=== PATIENT | female | born 1960 | race Caucasian/White ===

== ENCOUNTER 2019-07-20 08:24 | Emergency (ER) | payer BC, SELFPAY ==
--- NOTE | ~2019-07-20 | XR_ITS ---
XR shoulder RT min 2V DATE: 07/20/2019 09:03 INDICATION: Right shoulder pain TECHNIQUE: 4 views COMPARISON: None FINDINGS: There is a comminuted fracture the proximal humerus including transverse fracture through t he surgical neck and fracture of the greater tuberosity. There is minimal displacement or angulation. Alignment is preserved at the acromioclavicular and glenohumeral joints. Diffuse osteopenia. IMPRESSION: Comminuted fracture proximal humerus including fracture of the surgical neck and greater tuberosity Reviewed, dictated and finalized at location A. IMPRESSION: Comminuted fracture proximal humerus including fracture of the surg ical neck and greater tuberosity
--- NOTE | ~2019-07-20 | XR_ITS ---
XR elbow RT min 3V DATE: 07/20/2019 09:03 INDICATION: Right elbow injury, pain. Patient fell out of bed. TECHNIQUE: 3 views COMPARISON: None FINDINGS: Dorsal olecranon process spur. No fracture or dislocation of the elbow or elbow joint effusion. IMPRESSION: No fracture or dislocation or joint effusion of elbow Reviewed, dictated and finalized at location A.
[2019-07-20 08:31] VITALS: BP 150/69; PULSE 71; RESP 20; TEMP 36.3; O2SAT 97
--- NOTE | 2019-07-20 08:48 | ED.UPPEXIN ---
HPI - Extremity Injury (Upper) General Chief Complaint: Extremity Injury, Upper Stated Complaint: Fall (arm pain) Time Seen by Provider: 07/20/19 08:41 Source: patient Mode of arrival: ambulatory Limitations: no limitations History of Present Illness HPI narrative: This patient is a 58 year old female who is right hand dominant that presents to ER for evaluation of right shoulder injury. Patient states she fell out of bed after having a bad dream. She fell onto her right shoulder. She has severe right shoulder pain that is worse with leaning forward and it is worse with movement. She also reports pain just above her right elbow. She denies hitting her head, neck pain, numbness or tingling. She has not taken anything for pain. MD complaint: injury to: right and shoulder Onset (ago): hour(s) (1) Related Data Home Medications Medication Instructions Recorded Confirmed blood sugar diagnostic #10 each 04/08/19 04/08/19 lancets #50 each 04/08/19 04/08/19 loratadine 10 mg tablet 10 mg PO DAILY 04/08/19 04/08/19 subcutaneous insulin pump #1 each 04/08/19 04/08/19 lactobacillus combination no.4 07/20/19 [Probiotic] Allergies Allergy/AdvReac Type Severity Reaction Status Date / Time sulfite Allergy Anaphylaxis Verified 07/20/19 08:40 Review of Systems Review of Systems: All systems reviewed & are unremarkable except as noted in HPI and below Constitutional: Constitutional: Denies chills and Denies fever(s) Neurologic: Denies dizziness, Denies headache(s), Denies focal weakness and Denies weakness PMFSH Past Medical History Medical History (Updated 07/20/19 @ 10:02 by Bernadette Siddiqui MD) Essential hypertension Pure hypercholesterolemia, unspecified Type 2 diabetes mellitus with hyperglycemia, with long-term current use of insulin Surgical History Surgical History (Updated 07/20/19 @ 08:51 by Bernadette Siddiqui MD) Hx of tonsillectomy Social History Social History Smoking status: Former smoker Second hand tobacco smoke exposure: No Smoking end date: 03/01/08 Alcohol intake: current Gender identity (if verbalized by the patient): Female Exam Const: General: alert Orientation/consciousness: patient oriented x3 HENMT: Head: normocephalic and atraumatic Resp: Effort & Inspection: normal respiratory effort Neuro: General: patient oriented x3 and moves all extremities Extrem: General: capillary refill normal Right upper extremity: normal capillary refill and shoulder/upper arm tenderness of the proximal humerus and abnormal ROM held in an abnormal fashion in ADduction Course Reevaluation(s) Reevaluation #1: I Discussed with patient follow up . She states she will attempt to follow up with shoulder specialist. Date: 07/20/19 Time: 10:00 Consultations Consultation #1: Dr. Mays reviewed xray and he states patient can follow up with him as outpatient or the shoulder specialist at [place] that she has seen in the past. Date: 07/20/19 Time: 09:30 Vital Signs Vital signs: Vital Signs Temperature 97.4 F L 07/20/19 08:31 Pulse Rate 71 07/20/19 08:31 Respiratory Rate 20 07/20/19 08:31 Blood Pressure 150/69 H 07/20/19 08:31 Pulse Oximetry 97 07/20/19 08:31 Temperature 97.3 F L 07/20/19 10:37 Pulse Rate 65 07/20/19 10:37 Respiratory Rate 19 07/20/19 10:37 Blood Pressure 142/83 H 07/20/19 10:37 Pulse Oximetry 96 07/20/19 10:37 MDM - Extremity Injury (Upper) Imaging Data Radiologist's impression: ITS Impressions Shoulder X-Ray 07/20/19 09:04 IMPRESSION: Comminuted fracture proximal humerus including fracture of the surgical neck and greater tuberosity Elbow X-Ray 07/20/19 09:05 IMPRESSION: No fracture or dislocation or joint effusion of elbow Discharge Plan Discharge Clinical Impression: Closed traumatic minimally displaced fracture of proximal end of h
[2019-07-20] MEDS: ONDANSETRON HCL ODT 4 MG TABLET PO (08:51)
--- NOTE | 2019-07-20 09:11 | PC.NURSE ---
Patient back from xray at this time.
--- NOTE | 2019-07-20 10:23 | PC.NURSE ---
Disc with images requested from radiology at this time.
[2019-07-20 10:37] VITALS: BP 142/83; PULSE 65; RESP 19; TEMP 36.3; O2SAT 96
== END 2019-07-20 10:40 | disposition home or self-care (01) ==
PROVIDERS: Emergency Provider General Practice; PCP Family Medicine
DX: S42.211A Unspecified displaced fracture of surgical neck of right humerus, initial encounter for closed fracture (principal); S42.251A Displaced fracture of greater tuberosity of right humerus, initial encounter for closed fracture; I10 Essential (primary) hypertension; E78.00 Pure hypercholesterolemia, unspecified; Z87.891 Personal history of nicotine dependence; W06.XXXA Fall from bed, initial encounter
CPT/HCPCS: 73030; 73080; 99284; A9270

== ENCOUNTER 2021-09-15 01:47 | Day surgery (SDC) | payer BC, SELFPAY ==
[2021-09-03 13:02] VITALS: BMI 41.2
--- NOTE | 2021-09-12 13:49 | PM.HPGS ---
History of Present Illness History of Present Illness Consent: Risks, benefits, and alternatives have been discussed and questions answered. Patient agrees to proceed with procedure. Chief complaint: neoplasm screening Narrative: Zakia Ruth is a 60 year old female Referred for colon cancer screening. Her father had colon cancer. She had a negative colonoscopy 2011. Review of Systems Review of Systems: All systems reviewed & are unremarkable except as noted in HPI and below PMFSH Past Medical History Medical History Essential hypertension Morbid obesity Pure hypercholesterolemia, unspecified Retinopathy Type 2 diabetes mellitus with hyperglycemia, with long-term current use of insulin Surgical History Surgical History H/O shoulder surgery Hx of tonsillectomy Family History Family History Mother Family history of migraine headaches Family history of cataracts Family history of malignant neoplasm of breast in first degree relative Father Hypertension Family history of heart disease in male family member before age 55 Family history of hearing loss Carcinoma of colon COVID-19 Grandparent Cerebrovascular accident Family history of heart disease in male family member before age 55 Diabetes mellitus Other Family history of malignant neoplasm Social History Social History Smoking packs per day: 0.25 Smoking cigarettes per day: 5.0 Years smoked: 10 Smoking pack-years: 2.50 Smoking status: Former smoker Tobacco type: cigarettes Second hand tobacco smoke exposure: No Smoking end date: 03/01/08 Alcohol intake: current Substance use: never Substance use type: does not use Living arrangements: with family Additional living arrangements comments: Lives with partner Melinda. 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 [employer] Gender identity (if verbalized by the patient): Female Sexual Orientation (if Verbalized by the Patient): Lesbian, Eason, or Homosexual Spiritual care concerns: No Meds Home Medications and Allergies Home Medications Medication Instructions Recorded Confirmed Type loratadine 10 mg tablet (Claritin) 10 mg PO DAILY 04/08/19 09/15/21 History subcutaneous insulin pump (MiniMed #1 ea 11/09/19 09/15/21 History 630G Insulin Pump) blood sugar diagnostic (Contour #10 ea 02/13/20 09/15/21 History Next Test Strips) lancets (Microlet Lancet) #50 ea 02/13/20 09/15/21 History Humalog U-100 Insulin 100 unit/mL 100 unit continuous subcutaneous 04/28/21 09/15/21 Rx subcutaneous solution (insulin infusion DAILY 90 days #90 mL lispro) metformin 1,000 mg tablet 1,000 mg PO BID 90 days #180 tabs 04/28/21 09/15/21 Rx losartan 25 mg tablet See Rx Instructions .Route 05/26/21 09/15/21 Rx .COMPLEX #90 tabs simvastatin 10 mg tablet 10 mg PO QPM #90 tabs 05/26/21 09/15/21 Rx calcium carbonate 600 mg-vitamin 2 cap PO DAILY 08/04/21 09/15/21 History D3 25 mcg (1,000 unit) capsule escitalopram oxalate 10 mg tablet 10 mg PO DAILY #90 tabs 09/04/21 09/15/21 Rx (Lexapro) Allergies Allergy/AdvReac Type Severity Reaction Status Date / Time sulfite Allergy Anaphylaxis Verified 09/15/21 09:04 Exam Resp: Auscultation: clear to auscultation bilaterally Cardio: Rate: regular rate Rhythm: regular rhythm GI: GI Palp: Yes Soft to palpation and No Tenderness to palpation present (GI) Assessment and Plan Assessment and plan (1) Screening for malignant neoplasm of colon: Code(s): Z12.11 - Encounter for screening for malignant neoplasm of colon Status: Acute Assessment and Plan: Colonoscopy with possible biopsy or polypectomy or cautery or injection of substances.
[2021-09-15 09:05] VITALS: BP 153/69; PULSE 81; RESP 18; TEMP 36; O2SAT 96; BMI 42.5
[2021-09-15] MEDS: LACTATED RINGERS 1,000 ML 150 ML IV CONT (09:08)
[2021-09-15 09:21] LABS: Glucose Point of Care 109 mg/dl (65-105)
--- NOTE | 2021-09-15 09:44 | WPDANESEPPF ---
Anes - Initial Pre Proc Eval Procedure: Operation Date: 09/15/21 10:15 Proposed Procedures p Screening Colonoscopy - Brayden Bloom MD Date/Time: 09/15/21 09:44 Surgeon: Brayden Bloom MD Pre Op Diagnosis: neoplasm screening Patient Data Age: 60 Gender: F Height: 1.73 m Weight: 127 kg Last Vital Signs Temp 96.8 F L 09/15/21 09:05 Pulse 81 09/15/21 09:05 Resp 18 09/15/21 09:05 BP 153/69 H 09/15/21 09:05 Pulse Ox 96 09/15/21 09:05 O2 Del Method Room Air 09/15/21 09:05 Allergies Allergy/AdvReac Type Severity Reaction Status Date / Time sulfite Allergy Anaphylaxis Verified 09/15/21 09:04 Home Medications Medication Instructions Recorded Confirmed Type loratadine 10 mg tablet (Claritin) 10 mg PO DAILY 04/08/19 09/15/21 History subcutaneous insulin pump (MiniMed #1 ea 11/09/19 09/15/21 History 630G Insulin Pump) blood sugar diagnostic (Contour #10 ea 02/13/20 09/15/21 History Next Test Strips) lancets (Microlet Lancet) #50 ea 02/13/20 09/15/21 History Humalog U-100 Insulin 100 unit/mL 100 unit continuous subcutaneous 04/28/21 09/15/21 Rx subcutaneous solution (insulin infusion DAILY 90 days #90 mL lispro) metformin 1,000 mg tablet 1,000 mg PO BID 90 days #180 tabs 04/28/21 09/15/21 Rx losartan 25 mg tablet See Rx Instructions .Route 05/26/21 09/15/21 Rx .COMPLEX #90 tabs simvastatin 10 mg tablet 10 mg PO QPM #90 tabs 05/26/21 09/15/21 Rx calcium carbonate 600 mg-vitamin 2 cap PO DAILY 08/04/21 09/15/21 History D3 25 mcg (1,000 unit) capsule escitalopram oxalate 10 mg tablet 10 mg PO DAILY #90 tabs 09/04/21 09/15/21 Rx (Lexapro) Laboratory Tests 09/15/21 09:19 POC Capillary Glucose 109 mg/dl H mg/dl (65-105) Patient hx anesthesia problems: none Family hx anesthesia problems: none Results Review: All pre-operative results and documents have been reviewed as part of the pre-operative evaluation. [facility] Past Medical History Medical History Essential hypertension Morbid obesity Pure hypercholesterolemia, unspecified Retinopathy Type 2 diabetes mellitus with hyperglycemia, with long-term current use of insulin Surgical History Surgical History H/O shoulder surgery Hx of tonsillectomy Family History Family History Mother Family history of migraine headaches Family history of cataracts Family history of malignant neoplasm of breast in first degree relative Father Hypertension Family history of heart disease in male family member before age 55 Family history of hearing loss Carcinoma of colon COVID-19 Grandparent Cerebrovascular accident Family history of heart disease in male family member before age 55 Diabetes mellitus Other Family history of malignant neoplasm Social History Social History Smoking packs per day: 0.25 Smoking cigarettes per day: 5.0 Years smoked: 10 Smoking pack-years: 2.50 Smoking status: Former smoker Tobacco type: cigarettes Second hand tobacco smoke exposure: No Smoking end date: 03/01/08 Alcohol intake: current Substance use: never Substance use type: does not use Living arrangements: with family Additional living arrangements comments: Lives with partner Melinda. 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
[2021-09-15 10:50] VITALS: BP 114/65; PULSE 76; RESP 19; O2SAT 98
[2021-09-15 11:00] VITALS: BP 105/70; PULSE 84; RESP 23; O2SAT 96
[2021-09-15 11:03] LABS: Glucose Point of Care 89 mg/dl (65-105)
[2021-09-15 11:10] VITALS: BP 162/96; PULSE 72; RESP 31; O2SAT 99
== END 2021-09-15 11:25 | disposition home or self-care (01) ==
PROVIDERS: PCP Family Medicine; Visit Provider Internal Medicine Gastroenterology
PROC: 0DJD8ZZ Inspection of Lower Intestinal Tract, Via Natural or Artificial Opening Endoscopic (ICD-10-PCS; CPT 45378; principal; 2021-09-15 10:15)
DX: Z12.11 Encounter for screening for malignant neoplasm of colon (principal); D12.2 Benign neoplasm of ascending colon; Z79.84 Long term (current) use of oral hypoglycemic drugs; K63.5 Polyp of colon; Z80.0 Family history of malignant neoplasm of digestive organs; D17.5 Benign lipomatous neoplasm of intra-abdominal organs; I10 Essential (primary) hypertension; E78.00 Pure hypercholesterolemia, unspecified; E11.65 Type 2 diabetes mellitus with hyperglycemia; Z79.4 Long term (current) use of insulin; H35.00 Unspecified background retinopathy; Z87.891 Personal history of nicotine dependence; E66.01 Morbid (severe) obesity due to excess calories; Z68.41 Body mass index [BMI] 40.0-44.9, adult
CPT/HCPCS: 45385; 45380; 82948; 88305; J2704; J7120

== ENCOUNTER 2023-10-11 03:35 | Day surgery (SDC) | payer OTHER, SELFPAY ==
[2023-10-11 07:49] VITALS: BP 138/77; PULSE 86; RESP 18; TEMP 35.7; O2SAT 95
[2023-10-11] MEDS: LACTATED RINGERS 1,000 ML 150 ML IV CONT (07:53)
--- NOTE | 2023-10-11 07:58 | SUR.PREOP ---
blood sugar 100 per patients glucose monitor
--- NOTE | 2023-10-11 08:24 | PM.HPGS ---
History of Present Illness History of Present Illness Consent: Risks, benefits, and alternatives have been discussed and questions answered. Patient agrees to proceed with procedure. Chief complaint: Personal history colon polyps Narrative: Zakia Ruth is a 62 year old female with colon polyp in 2021, father had colon cancer and also frequent stools for months- started after using ozempic which she has discontinued but still having issues Review of Systems Review of Systems: All systems reviewed & are unremarkable except as noted in HPI and below PMFSH Past Medical History Medical History (Updated 10/11/23 @ 08:25 by Vik Bojorquez MD) BMI greater than 40 Depression Essential hypertension Family history of colon cancer in father Frequent bowel movements Morbid obesity Post herpetic neuralgia Pure hypercholesterolemia, unspecified Retinopathy Type 2 diabetes mellitus with hyperglycemia, with long-term current use of insulin Vitamin D deficiency, unspecified Surgical History Surgical History H/O shoulder surgery Hx of tonsillectomy Family History Family History Mother Family history of migraine headaches Family history of cataracts Family history of malignant neoplasm of breast in first degree relative Father Hypertension Family history of heart disease in male family member before age 55 Family history of hearing loss Carcinoma of colon COVID-19 Grandparent Cerebrovascular accident Family history of heart disease in male family member before age 55 Diabetes mellitus Other Family history of malignant neoplasm Social History Social History Smoking packs per day: 0.25 Smoking cigarettes per day: 5.0 Years smoked: 6 Smoking pack-years: 1.50 Smoking status: Former smoker Tobacco type: cigarettes Second hand tobacco smoke exposure: No Smoking end date: 03/01/08 Additional smoking assessment comments: 1 pack per week Alcohol intake: current Alcohol use details: ocassionally Substance use: never Substance use type: does not use Do You Feel Safe in your Home?: Yes Lack of Transportation: No Lack of Food: Never True Current Housing: I Have Housing Concerned About Future Housing: No Difficulty Paying Gas/Electric Bills: No Difficulty Paying for Meds: Decline to Answer Currently Unemployed: No Education: Bachelor's Degree Difficulty w/ Childcare or Family Care: No Living arrangements: with family Additional living arrangements comments: Lives with partner Melinda. 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 Gender identity (if verbalized by the patient): Female Sexual Orientation (if Verbalized by the Patient): Lesbian, Eason, or Homosexual Spiritual care concerns: No Meds Home Medications and Allergies Home Medications Medication Instructions Recorded Confirmed Type loratadine 10 mg tablet (Claritin) 10 mg PO DAILY 04/08/19 09/30/23 History blood sugar diagnostic (Contour #10 ea 02/13/20 07/06/23 History Next Test Strips) lancets (Microlet Lancet) #50 ea 02/13/20 07/06/23 History calcium carbonate 600 mg-vitamin 2 cap PO DAILY 08/04/21 09/30/23 History D3 25 mcg (1,000 unit) capsule losartan 25 mg tablet See Rx Instructions .Route 12/29/22 09/30/23 Rx .COMPLEX #90 tabs metformin 1,000 mg tablet See Rx Instructions .Route 12/29/22 09/30/23 Rx .COMPLEX #180 tabs simvastatin 10 mg tablet 10 mg PO QPM #90 tabs 12/31/22 09/30/23 Rx insulin lispro 100 unit/mL 100 unit continuous subcutaneous 04/09/23 09/30/23 Rx subcutaneous solution (Humalog infusion DAILY #90 mL U-100 Insulin) Allergies Allergy/AdvReac Type Severity Reaction Status Date / Time sulfite Allergy Anaphylaxis Brenden
[2023-10-11 08:51] VITALS: BP 117/68; PULSE 84; RESP 18; O2SAT 96
[2023-10-11 09:01] VITALS: BP 123/66; PULSE 80; RESP 17; O2SAT 94
--- NOTE | 2023-10-11 09:07 | SUR.PHASEII ---
Pt. blood glucose per dexcom was 99
[2023-10-11 09:11] VITALS: BP 127/80; PULSE 81; RESP 18; O2SAT 95
--- NOTE | 2023-10-15 14:15 | WPDANESEPPF ---
Anes - Initial Pre Proc Eval Procedure: Operation Date: 10/11/23 09:00 Proposed Procedures p Colonoscopy - Vik Bojorquez MD Date/Time: 10/15/23 14:15 Surgeon: Vik Bojorquez MD Pre Op Diagnosis: Personal history colon polyps Patient Data Age: 62 Gender: F Height: 1.73 m Weight: 129.1 kg Last Vital Signs Temp 96.2 F L 10/11/23 07:49 Pulse 81 10/11/23 09:11 Resp 18 10/11/23 09:11 BP 127/80 10/11/23 09:11 Pulse Ox 95 10/11/23 09:11 O2 Del Method Room Air 10/11/23 09:11 Allergies Allergy/AdvReac Type Severity Reaction Status Date / Time sulfite Allergy Anaphylaxis Verified 10/11/23 07:49 Home Medications Medication Instructions Recorded Confirmed Type loratadine 10 mg tablet (Claritin) 10 mg PO DAILY 04/08/19 09/30/23 History blood sugar diagnostic (Contour #10 ea 02/13/20 07/06/23 History Next Test Strips) lancets (Microlet Lancet) #50 ea 02/13/20 07/06/23 History calcium carbonate 600 mg-vitamin 2 cap PO DAILY 08/04/21 09/30/23 History D3 25 mcg (1,000 unit) capsule losartan 25 mg tablet See Rx Instructions .Route 12/29/22 09/30/23 Rx .COMPLEX #90 tabs metformin 1,000 mg tablet See Rx Instructions .Route 12/29/22 09/30/23 Rx .COMPLEX #180 tabs simvastatin 10 mg tablet 10 mg PO QPM #90 tabs 12/31/22 09/30/23 Rx insulin lispro 100 unit/mL 100 unit continuous subcutaneous 04/09/23 09/30/23 Rx subcutaneous solution (Humalog infusion DAILY #90 mL U-100 Insulin) Patient hx anesthesia problems: none Family hx anesthesia problems: none Results Review: All pre-operative results and documents have been reviewed as part of the pre-operative evaluation. [facility] Past Medical History Medical History (Updated 10/11/23 @ 08:25 by Vik Bojorquez MD) BMI greater than 40 Depression Essential hypertension Family history of colon cancer in father Frequent bowel movements Morbid obesity Post herpetic neuralgia Pure hypercholesterolemia, unspecified Retinopathy Type 2 diabetes mellitus with hyperglycemia, with long-term current use of insulin Vitamin D deficiency, unspecified Surgical History Surgical History H/O shoulder surgery Hx of tonsillectomy Family History Family History Mother Family history of migraine headaches Family history of cataracts Family history of malignant neoplasm of breast in first degree relative Father Hypertension Family history of heart disease in male family member before age 55 Family history of hearing loss Carcinoma of colon COVID-19 Grandparent Cerebrovascular accident Family history of heart disease in male family member before age 55 Diabetes mellitus Other Family history of malignant neoplasm Social History Social History Smoking packs per day: 0.25 Smoking cigarettes per day: 5.0 Years smoked: 6 Smoking pack-years: 1.50 Smoking status: Former smoker Tobacco type: cigarettes Second hand tobacco smoke exposure: No Smoking end date: 03/01/08 Additional smoking assessment comments: 1 pack per week Alcohol intake: current Alcohol use details: ocassionally Substance use: never Substance use type: does not use Do You Feel Safe in your Home?: Yes Lack of Transportation: No Lack of Food: Never True Current Housing: I Have Housing Concerned About Future Housing: No Difficulty Paying Gas/Electric Bills: No Difficulty Paying for Meds: Decline to Answer Currently Unemployed: No Education: Bachelor's Degree Difficulty w/ Childcare or Family Care: No Living arrangements: with family Additional living arrangements comments: Lives with partner Melinda. 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
== END 2023-10-11 09:23 | disposition home or self-care (01) ==
PROVIDERS: PCP Family Medicine; Visit Provider Internal Medicine Gastroenterology
PROC: 0DJD8ZZ Inspection of Lower Intestinal Tract, Via Natural or Artificial Opening Endoscopic (ICD-10-PCS; CPT 45378; principal; 2023-10-11 09:00)
DX: D12.2 Benign neoplasm of ascending colon (principal); I10 Essential (primary) hypertension; F32.A Depression, unspecified; E78.00 Pure hypercholesterolemia, unspecified; E11.65 Type 2 diabetes mellitus with hyperglycemia; E55.9 Vitamin D deficiency, unspecified; Z79.4 Long term (current) use of insulin; Z79.84 Long term (current) use of oral hypoglycemic drugs; Z98.890 Other specified postprocedural states; Z87.891 Personal history of nicotine dependence; Z86.010 Personal history of colon polyps; Z80.0 Family history of malignant neoplasm of digestive organs; Z80.3 Family history of malignant neoplasm of breast; Z82.49 Family history of ischemic heart disease and other diseases of the circulatory system
CPT/HCPCS: 45385; 45380; 88305; J2704; J7120